=== PATIENT | male | born 1975 | race Caucasian/White ===

== ENCOUNTER 2020-01-30 13:10 | Emergency (ER) | payer OTHER, SELFPAY ==
[2020-01-30] VITALS (26 sets, daily range): BP systolic 137–161; BP diastolic 83–99; PULSE 61–88; RESP 9–44; TEMP 36.7; O2SAT 92–100
--- NOTE | 2020-01-30 13:00 | RT.EKG_ITS ---
APPROVED REPORT Exam: Resting ECG Patient Location: E HR:86 bpm ECG Measurements Heart Rate 86 AXIS MS 194 P 67 QRSd 105 QRS 118 QT 351 T 46 QTc 421 Conclusion Sinus rhythm...normal P axis, V-rate 60- 99 Right axis deviation...QRS axis (100,269) I have reviewed and interpreted ECG and agree with software generated interpretation.
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
[2020-01-30] MEDS: HYDROmorphone 2 MG/ML VIAL IVP (13:35)
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
[2020-01-30 13:37] LABS: Abs Immature Grans 0.05 10^3/uL (0.0-0.06); Absolute Basophil Count 0.01 10^3/uL (0.0-0.2); Absolute Eosinophil Count 0.18 10^3/uL (0.0-0.7); Absolute Lymphocyte Count 1.95 10^3/uL (1.2-3.4); Absolute Monocyte Count 0.64 10^3/uL (0.1-0.8); Absolute Neutrophil Count 4.17 10^3/uL (1.2-6.7); Basophils % 0.1; Eosinophils % 2.6; HCT 47.7 % (40.0-50.0); HGB 16.9 g/dL (13.5-17.5); Immature Grans % 0.7; Lymphocytes % 27.9; MCH 27.9 pg (27.0-33.0); MCHC 35.4 % (32.0-36.0); MCV 78.7 fL (80-95); MPV 13.4 fL (8.0-11.0); Monocytes % 9.1; Neutrophils % 59.6; Nucleated RBC 0 %; RBC 6.06 10^6/uL (4.36-5.78); RDW 12.8 % (11.8-14.1); RDW-SD 35.5 fL
[2020-01-30 13:46] LABS: Lipase 256 U/L (73-393)
[2020-01-30] MEDS: Omnipaque 350 MG/ML 100 ML BTL IV (13:47)
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
[2020-01-30 13:53] LABS: ALT 33 U/L (16-63); AST 17 U/L (15-37); Alkaline Phosphatase 86 U/L (46-116); Anion Gap 9.2 mmol/L (3-11); BUN 22 mg/dL (7-18); Bilirubin, Total 0.7 mg/dL (0.2-1.0); CO2 24.8 mmol/L (21.0-32.0); CREATININE 1.26 mg/dL (0.70-1.30); Calcium 9.1 mg/dL (8.5-10.1); Chloride 104 mmol/L (98-107); Glucose 298 mg/dL (74-106); Magnesium 1.8 mg/dL (1.8-2.4); Potassium 4.4 mmol/L (3.5-5.1); Sodium 138 mmol/L (136-145)
[2020-01-30] MEDS: Normal Saline - Diluent 50 ML VIAL IV (13:54)
[2020-01-30] MEDS: Normal Saline Flush 10 ML SYR IVP (13:55)
[2020-01-30] MEDS: Lactated Ringers 1,000 ML 1000 ML IV (13:55)
[2020-01-30 13:57] LABS: Troponin I < 0.05 ng/mL (<0.06)
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
[2020-01-30 14:00] LABS: Diff Comment PLT Morph Reviewed; Platelet Count 187 10^3/uL (130-400)
[2020-01-30 14:01] LABS: Microcytosis 1+
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
[2020-01-30 14:22] LABS: INR 0.9 (0.9-1.1); PTT Activated 23.6 sec (21.0-31.4); Prothrombin Time 9.3 sec (9.3-11.0)
[2020-01-30] MEDS: Ketorolac 30 MG/ML VIAL IVP (15:25)
[2020-01-30] MEDS: ACETAMINOPHEN 1,000 MG/100 ML BTL 400 MG IVPB (15:32)
--- NOTE | 2020-01-30 16:30 | NUR.NOTE ---
Nursing Note: Referral given to Care Management to contact patient about follow up for PCP and Surgery. Aleksandra Sweet
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
== END 2020-01-30 16:41 | disposition home or self-care (01) ==
PROVIDERS: Emergency Provider Physician Assistant
DX: R10.11 Right upper quadrant pain (principal); M54.6 Pain in thoracic spine; R10.13 Epigastric pain; V43.62XA Car passenger injured in collision with other type car in traffic accident, initial encounter
CPT/HCPCS: 74177; 80053; 83690; 86850; 86900; 86901; 93005; 96361; 96374; 96375; 99285; 70450; 71260; 72125; 72128; 72131; 83735; 84484; 85025; 85610; 85730; 93010; 99284; J0131; J1885; J3490

== ENCOUNTER 2020-02-25 09:40 | Outpatient (REF) | payer OTHER, SELFPAY ==
--- NOTE | 2020-02-25 08:00 | SKI_PTH ---
PATIENT: MARY ANNE BUENO LOC: [facility] U#:[id number] AGE/SX: 44/M ROOM: RE02/25/[address]: Alberta Harris MD : 1975 BED: DIS: 02/25/2020 SPEC #: [id number] RECD: 02/25/20 11:06 STATUS: RAJANI REXin #: [id number] NICOLLE: 02/25/20 08:[address]: Alberta Harris DEPT: Surgical Specimen RECD BY: Stacy Cespedes Tissues: 1 - SKIN BIOPSY(SHAVE/PUNCH) Procedures: SKIN LEVEL 4 Comments: [id number]
== END 2020-02-25 10:00 ==
LOC: LBN 09:40
PROVIDERS: Visit Provider Surgery
DX: C43.59 Malignant melanoma of other part of trunk (principal)
CPT/HCPCS: 88305